=== PATIENT | male | born 1945 ===

== ENCOUNTER 2017-07-06 09:04 | Day surgery (SDC) | payer MEDICARE ==
[~2017-07-06] VITALS: Ht 175.3 cm; Wt 91.4 kg
[~2017-07-06 09:04] MED LIST: ASPI81CH; Chromium Pico400 MCG; Cialis5 MG; Flomax0.4 MG PO; KRILL OIL 3001 EACH; METO50ER; Magnesium500 M1; NIAC500ER; POTCIT5; PROBIOTIC1 EAC3; Percocet 5-3251 EACH PO; SIMV40; TERB250 PO; UBID10; VITAMIN D35000 UNI1
== END 2017-07-06 12:10 | disposition home or self-care (01) ==
LOC: ORSCSDS 09:04
PROVIDERS: Orthopaedic Surgery
PROC: 01N50ZZ Release Median Nerve, Open Approach (ICD-10-PCS; principal; 2017-07-06 10:30)
DX: G56.01 Carpal tunnel syndrome, right upper limb (principal); I25.10 Atherosclerotic heart disease of native coronary artery without angina pectoris; Z79.82 Long term (current) use of aspirin; Z79.899 Other long term (current) drug therapy
CPT/HCPCS: J2250; J3010; J7120

== ENCOUNTER 2018-10-19 15:41 | Inpatient (IN) | payer MEDICARE ==
[~2018-10-19] VITALS: Ht 182.9 cm; Wt 90.7 kg
[2018-10-19 16:43] LABS: BASOPHILS PERCENT AUTO 1 % (0-2); EOSINOPHILS ABSOLUTE AUTO 0.19 K/mm3 (0.00-0.68); EOSINOPHILS PERCENT AUTO 2 % (0-6); IMMATURE GRAN ABSOLUTE AUTO 0.05 K/mm3 (0.00-0.10); IMMATURE GRAN PERCENT AUTO 0 % (0-1); LYMPHOCYTES ABSOLUTE AUTO 2.25 K/mm3 (0.84-5.20); LYMPHOCYTES PERCENT AUTO 17 % (21-46); MONOCYTES ABSOLUTE AUTO 1.44 K/mm3 (0.16-1.47); MONOCYTES PERCENT AUTO 11 % (4-13); Mean Corpuscular HGB 32.7 pg (26.0-34.0); Mean Corpuscular HGB Conc 33.3 g/dL (31.5-36.5); Mean Corpuscular Volume 98 fL (80-100); Mean Platelet Volume 11.5 fL (9.1-12.4); NEUTROPHILS ABSOLUTE AUTO 8.99 K/mm3 (1.96-9.15); NEUTROPHILS PERCENT AUTO 69 % (41-73); Platelet Count 221 K/mm3 (150-400); RDW Coefficient Variation 12.6 % (11.7-14.2); RDW Standard Deviation 45.2 fL (35.1-46.3); White Blood Cell Count 13.02 K/mm3 (4.00-11.30)
[2018-10-19 16:49] LABS: Alanine Aminotransfer (ALT/SGP 41 U/L (12-78); Albumin, Blood 4.6 g/dL (3.4-5.0); Albumin/Globulin Ratio 1.3 (0.8-1.8); Alk Phos 66 U/L (50-136); Anion Gap 9 mmol/L (6-16); Aspartate Aminotrans (AST/SGOT 25 U/L (12-37); Bilirubin, Total 0.8 mg/dL (0.1-1.0); Blood Urea Nitrogen 22 mg/dL (8-24); Bun/Creatinine Ratio 12.6 (12.0-20.0); CO2, Blood 20 mmol/L (21-32); Calcium, Blood 9.4 mg/dL (8.5-10.1); Chloride, Blood 113 mmol/L (98-108); Creatinine, Blood 1.75 mg/dL (0.60-1.20); Globulin, Blood 3.5 g/dL (2.2-4.0); Glomerular Filtration Rate 41 (60-); Glucose, Blood 197 mg/dL (70-99); Potassium, Blood 4.2 mmol/L (3.5-5.5); Sodium, Blood 142 mmol/L (136-145); Total Protein, Blood 8.1 g/dL (6.4-8.2); Troponin I <0.015 ng/mL (0.000-0.040)
[2018-10-19 16:52] LABS: International Normalized Ratio 1.05; Prothrombin Time Results 11.1 Sec (9.7-11.5)
[2018-10-19 17:00] LABS: PCO2 Arterial 43.6 mmHg (35-45); PO2 Arterial 116 mmHg (80-100); pH Blood Arterial 7.06 (7.35-7.45)
--- NOTE | 2018-10-19 19:11 | NUR ---
Call back - Provided PC support for pt's spouse Vandana and son Kev. Both were provided space to reflect on pt. Both appear to be grieving appropriately at this time. Verbal prayer was offered on their behalf.
== END 2018-10-19 17:05 | DRG 249 ==
LOC: ER 15:41 → ICUW 16:14
PROVIDERS: Emergency Medicine; ADMIT Internal Medicine Interventional Cardiology
PROC: 4A023N7 Measurement of Cardiac Sampling and Pressure, Left Heart, Percutaneous Approach (ICD-10-PCS; principal; 2018-10-19)
PROC: 02703EZ Dilation of Coronary Artery, One Artery with Two Intraluminal Devices, Percutaneous Approach (ICD-10-PCS; 2018-10-19)
PROC: 02C03ZZ Extirpation of Matter from Coronary Artery, One Artery, Percutaneous Approach (ICD-10-PCS; 2018-10-19)
PROC: B210YZZ Fluoroscopy of Single Coronary Artery using Other Contrast (ICD-10-PCS; 2018-10-19)
PROC: 0BH17EZ Insertion of Endotracheal Airway into Trachea, Via Natural or Artificial Opening (ICD-10-PCS; 2018-10-19)
PROC: 5A1935Z Respiratory Ventilation, Less than 24 Consecutive Hours (ICD-10-PCS; 2018-10-19)
DX: I21.19 ST elevation (STEMI) myocardial infarction involving other coronary artery of inferior wall (principal); I10 Essential (primary) hypertension; I25.10 Atherosclerotic heart disease of native coronary artery without angina pectoris; Z95.828 Presence of other vascular implants and grafts; I25.2 Old myocardial infarction; I49.01 Ventricular fibrillation
CPT/HCPCS: 31500; 33210; 36415; 36600; 80053; 82803; 84484; 85025; 85610; 85730; 86850; 86900; 86901; 92941; 92950; 93005; 93010; 93454; 99152; 99153; 99285-25; C1757; C1769; C1876; C1887; C1894; J0282; J0330; J0461; J1644; J2250; J3010; J3475; J7030; Q9967